=== PATIENT | male | born 1995 | race Caucasian/White ===

== ENCOUNTER 2020-05-29 23:57 | Emergency (ER) | payer SELFPAY ==
[~2020-05-29] VITALS: Ht 167.6 cm; Wt 68.0 kg
[2020-05-29 23:59] VITALS: BP 133/86; Ht 167.6 cm; Wt 68.0 kg
== END 2020-05-30 01:10 | disposition home or self-care (01) ==
LOC: ED 23:57
DX: U07.1 COVID-19 (principal)
CPT/HCPCS: J1100; J1885; Q0162; U0003